=== PATIENT | female | born 1960 | race African-American/Black ===

== ENCOUNTER 2017-12-30 09:01 | Day surgery (SDC) | payer MEDICARE, MEDICAID ==
[~2017-12-30] VITALS: Ht 167.6 cm; Wt 147.0 kg
[~2017-12-30 09:01] MED LIST: ALLO100T PO; AMLO5TAB88 PO; ASPI-1159 PO; CHOL20004 PO; DIVA500T3 PO; DOCU250C19 PO; FURO20TA4 PO; GABA100C PO; HYDR12.529 PO; IBUP-2030 PO; LISI40TA4 PO; METO100T16 PO; OMEP20TA2 PO; PARO-66 PO; RISP4TAB16 PO; SOLI10TA PO; ZET10 PO
[2017-12-30] MEDS ORDERED: LACTATED RINGERS 1,000 ML IV SCH (09:30)
[2017-12-30 10:01] LABS: BASOPHILS % 1.2 % (0.0-2.0); EOSINOPHILS % 1.5 % (0.0-5.0); HEMATOCRIT. 30.3 % (36.0-48.0); HEMOGLOBIN. 10.1 g/dL (12.0-16.0); LYMPHOCYTES % 26.4 % (20.0-50.0); MEAN CORPUSCULAR HEMOGLOBIN 28.1 pg (28.0-32.0); MEAN CORPUSCULAR VOLUME 84.5 fL (81.0-99.0); MEAN PLATELET VOLUME 8.4 fl (7.4-10.4); MONOCYTES % 10.1 % (2.0-8.0); NEUTROPHILS % 60.8 % (40.0-76.0); PLATELET 230 x1000/uL (130-400); RED BLOOD CELL COUNT 3.59 mill/uL (4.2-5.4); RED CELL DISTRIBUTION WIDTH 15.5 % (11.6-14.6)
[2017-12-30 10:06] LABS: CHLORIDE 95 mEq/L (98-107)
[2017-12-30 10:09] LABS: INR 1.1; PARTIAL THROMBOPLASTIN TIME 25.4 sec (23.4-31.0); PROTHROMBIN TIME 10.9 sec (9.4-11.6)
[2017-12-30] MEDS ORDERED: PROPOFOL 200MG/20ML VIAL IV ONE (11:41)
[2017-12-30] MEDS ORDERED: SUCCINYLCHOLINE CHLORIDE 200MG/10ML VIAL IV ONE (11:41)
[2017-12-30] MEDS ORDERED: MIDAZOLAM HCL 5 MG/5 ML VIAL ONE (11:41)
[2017-12-30] MEDS ORDERED: LIDOCAINE HCL 1% 20ML VIAL (Pyxis) INJ ONE (11:41)
[2017-12-30] MEDS ORDERED: GLYCOPYRROLATE 0.2 MG/ML 2ML VIAL ONE (12:15)
[2017-12-30] MEDS ORDERED: SODIUM CHLORIDE 0.9% 1,000 ML IV ONE (12:57)
[2017-12-30] MEDS ORDERED: ACETAMINOPHEN 325MG TABLET PO SCH (13:00)
[2017-12-30] MEDS ORDERED: IBUPROFEN 600MG TABLET PO SCH (13:00)
[2017-12-30] MEDS ORDERED: ONDANSETRON HCL 4MG/2ML VIAL IV PRN (13:00)
[2017-12-30] MEDS ORDERED: HYDROMORPHONE HCL/PF 2MG/ML CPJ IV PRN (13:00)
== END 2017-12-30 15:00 | disposition home or self-care (01) ==
LOC: OR 09:01
PROVIDERS: ATTEND Internal Medicine Gastroenterology
DX: K29.50 Unspecified chronic gastritis without bleeding (principal); R19.5 Other fecal abnormalities; I10 Essential (primary) hypertension; E66.01 Morbid (severe) obesity due to excess calories; K21.9 Gastro-esophageal reflux disease without esophagitis; F31.9 Bipolar disorder, unspecified; M19.90 Unspecified osteoarthritis, unspecified site; E78.00 Pure hypercholesterolemia, unspecified; Z79.899 Other long term (current) drug therapy; Z79.82 Long term (current) use of aspirin; Z79.1 Long term (current) use of non-steroidal anti-inflammatories (NSAID); Z85.3 Personal history of malignant neoplasm of breast; Z88.8 Allergy status to other drugs, medicaments and biological substances
CPT/HCPCS: 36415; 43239; 45378; 80048; 85025; 85610; 85730; 88305; 88312; 88313; 93005; J0330; J2250; J3490; J7120; J2704

== ENCOUNTER → 2018-08-04 | Outpatient (CLI) | payer MEDICARE, MEDICAID ==
[~2018-08-04] MED LIST changes: +BARIUM SULFATE 450ML ORAL SUSP ONE
== END | disposition home or self-care (01) ==
LOC: CT 08:49
PROVIDERS: ATTEND Internal Medicine Gastroenterology
DX: K80.20 Calculus of gallbladder without cholecystitis without obstruction (principal); R16.0 Hepatomegaly, not elsewhere classified; M47.816 Spondylosis without myelopathy or radiculopathy, lumbar region; M48.061 Spinal stenosis, lumbar region without neurogenic claudication; Z90.710 Acquired absence of both cervix and uterus
CPT/HCPCS: 74176

== ENCOUNTER → 2019-04-02 | Outpatient (CLI) | payer MEDICARE, MEDICAID ==
[~2019-04-02] MED LIST changes: -ASPI-1159 PO; +ASPI-1393 PO; -BARIUM SULFATE 450ML ORAL SUSP ONE; +EZET10TA13 PO; -ZET10 PO
== END | disposition home or self-care (01) ==
LOC: US 08:41
PROVIDERS: ATTEND Internal Medicine Gastroenterology
DX: K76.0 Fatty (change of) liver, not elsewhere classified (principal); K21.9 Gastro-esophageal reflux disease without esophagitis; N18.9 Chronic kidney disease, unspecified; K80.20 Calculus of gallbladder without cholecystitis without obstruction; R16.0 Hepatomegaly, not elsewhere classified
CPT/HCPCS: 76700